=== PATIENT | female | born 1985 | race Hispanic/Latino ===

== ENCOUNTER 2018-06-13 20:06 | Emergency (ER) | payer BC, OTHER ==
[2018-06-13 20:22] VITALS: TEMP 98.2
--- NOTE | 2018-06-13 21:30 | ED PDOC ---
HPI: Hypertension/Hypotension Time Seen by Provider: 06/13/18 21:11 Chief Complaint (Nursing): Palpitations Chief Complaint (Provider): palpitations History Per: Patient History/Exam Limitations: no limitations Onset/Duration Of Symptoms: Hrs Current Symptoms Are (Timing): Still Present Quality Of Symptoms: Rapid Heart Rate Additional Complaint(s): 32 y/o female presents for evaluation of palpitations x 3 hours. Patient states she was sitting when symptoms started, which have gotten progressively worse. Associated "heaviness" to both arms. Denies fever, headache, dizziness, chest pain, shortness of breath, abdominal pain, leg pain/swelling, recent travel, OCP use. Patient took a baby aspirin prior to arrival. Patient admits to recent stressors that could be possible cause of symptoms but denies suicidal/homicidal ideations Past Medical History Reviewed: Historical Data, Nursing Documentation, Vital Signs Vital Signs: Last Vital Signs Temp 98.2 F 06/13/18 20:17 Pulse 99 H 06/13/18 20:17 Resp 16 06/13/18 20:17 BP 114/71 06/13/18 20:17 Pulse Ox 99 06/13/18 20:17 - Medical History PMH: Cardia Arrhythmia (SVT) - Surgical History Surgical History: No Surg Hx - Family History Family History: States: No Known Family Hx - Living Arrangements Living Arrangements: With Family - Social History Current smoker - smoking cessation education provided: No Alcohol: Occasional Drugs: Denies - Allergies Allergies/Adverse Reactions: Allergies Allergy/AdvReac Type Severity Reaction Status Date / Time No Known Allergies Allergy Verified 06/13/18 20:17 Review of Systems ROS Statement: Except As Marked, All Systems Reviewed And Found Negative Cardiovascular: Positive for: Palpitations Physical Exam - Reviewed Nursing Documentation Reviewed: Yes Vital Signs Reviewed: Yes - Physical Exam Appears: Positive for: Well, Non-toxic, Uncomfortable (anxious) Skin: Positive for: Normal Color Eye Exam: Positive for: Normal appearance ENT: Positive for: Normal ENT Inspection Cardiovascular/Chest: Positive for: Regular Rate, Rhythm Respiratory: Positive for: Normal Breath Sounds Gastrointestinal/Abdominal: Positive for: Normal Exam Back: Positive for: Normal Inspection Extremity: Positive for: Normal ROM Neurologic/Psych: Positive for: Alert, Oriented (x3) - Laboratory Results Result Diagrams: 06/13/18 21:31 06/13/18 21:45 - ECG ECG: Positive for: Viewed By Me (reviewed by ED attending) ECG Rhythm: Positive for: Sinus Rhythm, Nonspecific Changes O2 Sat by Pulse Oximetry: 99 - Progress ED Course And Treament: -upreg -cbc -cmp -tsh -trop -ekg -quality assurance monitor body Patient educated on findings, discharged with instructions to follow up PMD/cardiology Return precautions given Disposition - Clinical Impression Clinical Impression: Palpitations - Patient ED Disposition Is Patient to be Admitted: No Counseled Patient/Family Regarding: Studies Performed, Diagnosis, Need For Followup - Disposition Disposition: Routine/Home Disposition Time: 00:30 Condition: IMPROVED Instructions: Palpitations Forms: [facility] (Syrian)
[2018-06-13 22:29] LABS: PROTHROMBIN TIME 11.5 Seconds (9.8-13.1)
[2018-06-13 22:32] LABS: PARTIAL THROMBOPLASTIN TIME 31.4 Seconds (25.6-37.1)
[2018-06-13 22:32] LABS: BASO % 0.7 % (0.0-2.0); EOS # 0.2 K/uL (0.0-0.7); HEMOGLOBIN 12.9 g/dL (12.0-16.0); LYMPH # 1.8 K/uL (1.0-4.3); LYMPH % 30.7 % (20.0-40.0); MEAN CELL VOLUME 88.2 fl (81.0-99.0); MEAN PLATELET VOLUME 8.1 fl (7.2-11.7); MONO # 0.3 K/uL (0.0-0.8); MONO % 5.3 % (0.0-10.0); NEUT # 3.4 K/uL (1.8-7.0); NEUT % 60.3 % (50.0-75.0); NRBC % 0.1 % (0.0-0.0); RBC 4.29 Mil/uL (3.80-5.20); RED CELL DISTRIBUTION WIDTH 12.9 % (11.5-14.5); WHITE BLOOD COUNT 5.7 K/uL (4.8-10.8)
[2018-06-13 22:58] LABS: ALB/GLOB RATIO 1.2 (1.0-2.1); ALBUMIN 4.7 g/dL (3.5-5.0); ALT/SGPT 33 U/L (9-52); AST/SGOT 35 U/L (14-36); BLOOD UREA NITROGEN 10 mg/dl (7-17); CALCIUM 9.6 mg/dL (8.4-10.2); GFR NON-AFRICAN AMERICAN > 60
[2018-06-14 03:40] VITALS: BP 107/70; PULSE 84; RESP 18
[2018-06-14 20:49] VITALS: O2SAT 99
--- NOTE | 2018-06-21 06:30 | CARD ---
APPROVED REPORT Date of service: 06/13/2018 EKG Measurement Heart [id number] ME [id number] <Conclusion> Normal sinus rhythm Nonspecific ST and T wave abnormality Abnormal ECG
== END 2018-06-14 00:32 | disposition home or self-care (01) ==
LOC: H.ER 20:06
DX: R00.2 Palpitations (principal)